=== PATIENT | female | born 1965 | race Caucasian/White ===

== ENCOUNTER → 2016-11-10 | Outpatient (CLI) | payer OTHER ==
[2016-11-10 15:50] LABS: BUN/CREATININE RATIO 6 (0-10)
== END ==
LOC: LAB 14:46
PROVIDERS: Family Medicine
DX: E87.6 Hypokalemia (principal)
CPT/HCPCS: 36415; 80048

== ENCOUNTER 2016-11-22 14:21 | Emergency (ER) | payer OTHER ==
[2016-11-22 15:58] LABS: BUN/CREATININE RATIO 6 (0-10)
[2016-11-22 16:25] LABS: HEMOGLOBIN 18.2 gm/dl (12.3-15.3); RED BLOOD COUNT 5.48 M/UL (4.00-5.10); WHITE BLOOD COUNT 5.9 K/UL (4.5-11.0)
== END 2016-11-22 18:20 | disposition home or self-care (01) ==
LOC: ER1 14:21
PROVIDERS: Specialist/Technologist Athletic Trainer
DX: R10.11 Right upper quadrant pain (principal); J40 Bronchitis, not specified as acute or chronic; F17.290 Nicotine dependence, other tobacco product, uncomplicated; E80.6 Other disorders of bilirubin metabolism; Z88.1 Allergy status to other antibiotic agents
CPT/HCPCS: 36415; 76705; 80053; 83690; 85025; 93005; 96374; 96375; 99284; C9113; J2405

== ENCOUNTER 2020-08-29 05:54 | Inpatient (IN) | payer OTHER ==
[~2020-08-29] VITALS: Ht 160 cm; Wt 38.6 kg
[~2020-08-29 05:54] MED LIST: ADVAIR HFA 230-28 GM INH; AUGMENTIN 875-1 EACH PO; ENSURE HIGH PR237 ML PO; NORCO 7.5-3251 EACH PO; OMNICEF 300 MG300 MG PO; OXYGEN; PREDNISONE 10 M10 MG PO; PROVENTIL HFA6.7 GM INH; SINGULAIR10 MG PO; SPIRIVA HANDIH18 MCG INH
[2020-08-29 06:44] LABS: HEMOGLOBIN 14.2 gm/dl (12.3-15.3); RED BLOOD COUNT 4.77 M/UL (4.00-5.10); WHITE BLOOD COUNT 16.5 K/UL (4.5-11.0)
[2020-08-29 07:06] LABS: BUN/CREATININE RATIO 24 (0-10)
[2020-08-29] MEDS ORDERED: VENTOLIN HFA 66.7 GM INH (12:08)
[2020-08-29] MEDS ORDERED: ZANAFLEX4 MG PO (12:08)
[2020-08-29] MEDS ORDERED: ULTRAM50 MG PO (12:08)
[2020-08-29] MEDS ORDERED: PREDNISONE 10 M10 MG PO (12:09)
[2020-08-29] MEDS ORDERED: NEURONTIN300 MG PO (12:11)
[2020-08-29] MEDS ORDERED: ROBAXIN-750750 MG PO (12:11)
[2020-08-29] MEDS ORDERED: OMEPRAZOLE20 MG PO (12:12)
[2020-08-29] MEDS ORDERED: RELAFEN750 MG PO (12:12)
[2020-08-29] MEDS ORDERED: ZOFRAN ODT 4 MG4 MG PO (12:13)
[2020-08-29] MEDS ORDERED: MUCINEX600 MG PO (12:13)
[2020-08-29] MEDS ORDERED: CLARITIN 10MG T10 MG PO (12:13)
[2020-08-29] MEDS ORDERED: DAILY VITE1 EACH PO (12:14)
[2020-08-29] MEDS ORDERED: MILK THISTLE500 MG PO (12:14)
[2020-08-30 04:09] LABS: HEMOGLOBIN 10.5 gm/dl (12.3-15.3); RED BLOOD COUNT 3.6 M/UL (4.00-5.10); WHITE BLOOD COUNT 8.4 K/UL (4.5-11.0)
[2020-08-30 04:58] LABS: BUN/CREATININE RATIO 15 (0-10)
--- NOTE | 2020-08-30 12:02 | NUR ---
SPOKE WITH AT THIS TIME ABOUT ADDING PAIN MEDICATION TO PATINETS MEDICATION REGIMEN DUE TO PATIENT AND FAMILY REQUEST.
[2020-08-31 04:42] LABS: HEMOGLOBIN 10.2 gm/dl (12.3-15.3); RED BLOOD COUNT 3.54 M/UL (4.00-5.10); WHITE BLOOD COUNT 7.8 K/UL (4.5-11.0)
[2020-08-31 04:58] LABS: BUN/CREATININE RATIO 17 (0-10)
[2020-09-01] MEDS ORDERED: OMNICEF 300 MG300 MG PO (11:30)
[2020-11-14] MEDS ORDERED: SPIRIVA18 MCG INH (11:52)
[2020-11-14] MEDS ORDERED: BACLOFEN10 MG PO (11:53)
[2020-11-14] MEDS ORDERED: LEXAPRO10 MG PO (11:54)
[2020-11-14] MEDS ORDERED: CRANBERRY PO (12:08)
[2020-11-14] MEDS ORDERED: IRON PO (12:09)
== END 2020-09-01 15:22 | disposition home or self-care (01) | DRG 871 ==
LOC: ER1 05:54 → MED SURG 4 09:28 → CDU 09:28 → MED SURG 4 15:30
PROVIDERS: Emergency Medicine; Physician Assistant Medical; ADMIT Internal Medicine
DX: A41.9 Sepsis, unspecified organism (principal); J18.9 Pneumonia, unspecified organism; G93.41 Metabolic encephalopathy; J44.0 Chronic obstructive pulmonary disease with (acute) lower respiratory infection; E44.0 Moderate protein-calorie malnutrition; Z20.822 Contact with and (suspected) exposure to COVID-19; Z68.1 Body mass index [BMI] 19.9 or less, adult; M87.852 Other osteonecrosis, left femur; K74.60 Unspecified cirrhosis of liver; K76.0 Fatty (change of) liver, not elsewhere classified; F10.10 Alcohol abuse, uncomplicated; M87.851 Other osteonecrosis, right femur; J96.10 Chronic respiratory failure, unspecified whether with hypoxia or hypercapnia; Z99.81 Dependence on supplemental oxygen; Z74.01 Bed confinement status; Z88.1 Allergy status to other antibiotic agents; Z79.899 Other long term (current) drug therapy
CPT/HCPCS: 0240U; 36600; 71045; 80048; 80053; 81001; 82140; 82550; 82553; 82803; 83605; 83690; 83735; 83874; 83880; 84484; 85025; 85027; 87040; 87086; 96365; 96375; 99285; J0456; J0696; J1650; J2930; J7030

== ENCOUNTER → 2020-09-22 | Outpatient (CLI) | payer OTHER ==
[~2020-09-22] MED LIST changes: +BACLOFEN10 MG PO; +CLARITIN 10MG T10 MG PO; +CRANBERRY PO; +DAILY VITE1 EACH PO; +ELIQUIS2.5 MG PO; +ENDOCET 7.5-321 EACH PO; +IRON PO; +LEXAPRO10 MG PO; +MILK THISTLE500 MG PO; +MUCINEX600 MG PO; +NEURONTIN300 MG PO; +OMEPRAZOLE20 MG PO; +RELAFEN750 MG PO; +ROBAXIN-750750 MG PO; +SPIRIVA18 MCG INH; +ULTRAM50 MG PO; +VENTOLIN HFA 66.7 GM INH; +ZANAFLEX4 MG PO; +ZOFRAN ODT 4 MG4 MG PO
[2020-09-22 10:52] LABS: HEMOGLOBIN 12.7 gm/dl (12.3-15.3); RED BLOOD COUNT 4.35 M/UL (4.00-5.10); WHITE BLOOD COUNT 6.9 K/UL (4.5-11.0)
[2020-09-22 11:21] LABS: BUN/CREATININE RATIO 20 (0-10)
== END ==
LOC: LAB 09:16
PROVIDERS: Family Medicine
DX: Z01.818 Encounter for other preprocedural examination (principal); Z79.899 Other long term (current) drug therapy; R91.8 Other nonspecific abnormal finding of lung field
CPT/HCPCS: 36415; 71046; 80053; 80061; 84439; 84443; 85025; 85610; 85730

== ENCOUNTER → 2020-11-14 | Outpatient (CLI) | payer OTHER ==
[2020-11-14 12:03] LABS: RED BLOOD COUNT 5.04 M/UL (4.00-5.10); WHITE BLOOD COUNT 11.8 K/UL (4.5-11.0)
[2020-11-14 12:18] LABS: BUN/CREATININE RATIO 15 (0-10)
== END ==
LOC: EDSTATUS 10:00 → OPSV2 10:00
PROVIDERS: Orthopaedic Surgery
DX: M87.052 Idiopathic aseptic necrosis of left femur (principal); M87.051 Idiopathic aseptic necrosis of right femur; J43.2 Centrilobular emphysema; R00.0 Tachycardia, unspecified
CPT/HCPCS: 36415; 71046; 80048; 85025; 87081; 93005

== ENCOUNTER → 2020-11-24 | Outpatient (CLI) | payer OTHER ==
[2020-11-24 14:32] LABS: BUN/CREATININE RATIO 19 (0-10)
== END ==
LOC: LAB 13:27
PROVIDERS: Orthopaedic Surgery
DX: Z01.812 Encounter for preprocedural laboratory examination (principal)
CPT/HCPCS: 36415; 80048; 86850; 86920

== ENCOUNTER 2020-11-25 06:47 | Inpatient (IN) | payer OTHER ==
[~2020-11-25] VITALS: Ht 167.6 cm; Wt 47.6 kg
[~2020-11-25 06:47] MED LIST changes: -ELIQUIS2.5 MG PO; -ENDOCET 7.5-321 EACH PO
[2020-11-25] MEDS ORDERED: ELIQUIS2.5 MG PO (08:32)
[2020-11-25] MEDS ORDERED: ENDOCET 7.5-321 EACH PO (08:32)
[2020-11-25 12:16] LABS: HEMOGLOBIN 11.9 gm/dl (12.3-15.3); RED BLOOD COUNT 4.15 M/UL (4.00-5.10); WHITE BLOOD COUNT 23.6 K/UL (4.5-11.0)
[2020-11-25 14:53] LABS: HEMOGLOBIN 10.3 gm/dl (12.3-15.3); WHITE BLOOD COUNT 28.9 K/UL (4.5-11.0)
[2020-11-25 14:58] LABS: RED BLOOD COUNT 3.53 M/UL (4.00-5.10)
[2020-11-25 15:32] LABS: BUN/CREATININE RATIO 19 (0-10)
[2020-11-26 05:15] LABS: HEMOGLOBIN 7.2 gm/dl (12.3-15.3)
[2020-11-26 05:16] LABS: RED BLOOD COUNT 2.44 M/UL (4.00-5.10); WHITE BLOOD COUNT 11.1 K/UL (4.5-11.0)
[2020-11-26 05:39] LABS: BUN/CREATININE RATIO 28 (0-10)
[2020-11-26 15:51] LABS: HEMOGLOBIN 8.1 gm/dl (12.3-15.3)
[2020-11-26 22:27] LABS: HEMOGLOBIN 7.9 gm/dl (12.3-15.3)
[2020-11-27 07:00] LABS: HEMOGLOBIN 9.3 gm/dl (12.3-15.3); WHITE BLOOD COUNT 8.8 K/UL (4.5-11.0)
[2020-11-27 07:02] LABS: RED BLOOD COUNT 3.23 M/UL (4.00-5.10)
[2020-11-27 07:37] LABS: BUN/CREATININE RATIO 27 (0-10)
[2020-11-28 03:48] LABS: HEMOGLOBIN 8.5 gm/dl (12.3-15.3); RED BLOOD COUNT 2.99 M/UL (4.00-5.10); WHITE BLOOD COUNT 10.9 K/UL (4.5-11.0)
[2020-11-28 04:08] LABS: BUN/CREATININE RATIO 22 (0-10)
[2020-11-29 04:04] LABS: HEMOGLOBIN 8.5 gm/dl (12.3-15.3); RED BLOOD COUNT 2.88 M/UL (4.00-5.10)
[2020-11-29 04:23] LABS: BUN/CREATININE RATIO 17 (0-10)
[2020-11-30 04:34] LABS: HEMOGLOBIN 8.1 gm/dl (12.3-15.3); RED BLOOD COUNT 2.8 M/UL (4.00-5.10); WHITE BLOOD COUNT 11.9 K/UL (4.5-11.0)
[2020-11-30 05:19] LABS: BUN/CREATININE RATIO 17 (0-10)
[2020-12-01 06:55] LABS: HEMOGLOBIN 7.7 gm/dl (12.3-15.3); RED BLOOD COUNT 2.7 M/UL (4.00-5.10)
[2020-12-01 07:15] LABS: BUN/CREATININE RATIO 20 (0-10)
[2020-12-02 06:28] LABS: HEMOGLOBIN 7.6 gm/dl (12.3-15.3); RED BLOOD COUNT 2.68 M/UL (4.00-5.10); WHITE BLOOD COUNT 7.9 K/UL (4.5-11.0)
[2020-12-02 06:55] LABS: BUN/CREATININE RATIO 19 (0-10)
[2020-12-03 03:31] LABS: HEMOGLOBIN 7.8 gm/dl (12.3-15.3)
[2020-12-04 03:23] LABS: RED BLOOD COUNT 2.83 M/UL (4.00-5.10)
[2020-12-05 20:01] LABS: HEMOGLOBIN 7.7 gm/dl (12.3-15.3)
[2020-12-07 06:24] LABS: BUN/CREATININE RATIO 14 (0-10)
[2020-12-08 04:43] LABS: BUN/CREATININE RATIO 14 (0-10)
[2020-12-08 05:01] LABS: HEMOGLOBIN 7.6 gm/dl (12.3-15.3); RED BLOOD COUNT 2.68 M/UL (4.00-5.10); WHITE BLOOD COUNT 7.3 K/UL (4.5-11.0)
[2020-12-09 08:59] LABS: HEMOGLOBIN 8.5 gm/dl (12.3-15.3); RED BLOOD COUNT 3.12 M/UL (4.00-5.10); WHITE BLOOD COUNT 8.3 K/UL (4.5-11.0)
[2020-12-09 09:20] LABS: BUN/CREATININE RATIO 10 (0-10)
== END 2020-12-10 12:15 | DRG 461 ==
LOC: ZOBSOF 06:47 → CCU 16:34 → M/S 11-28 16:47
PROVIDERS: Family Medicine; Internal Medicine; Nurse Practitioner Family; ADMIT Orthopaedic Surgery
PROC: 0SR901A Replacement of Right Hip Joint with Metal Synthetic Substitute, Uncemented, Open Approach (ICD-10-PCS; 2020-11-25)
PROC: 0SRB01A Replacement of Left Hip Joint with Metal Synthetic Substitute, Uncemented, Open Approach (ICD-10-PCS; principal; 2020-11-25 11:45)
PROC: 30233N1 Transfusion of Nonautologous Red Blood Cells into Peripheral Vein, Percutaneous Approach (ICD-10-PCS; 2020-11-26)
DX: M16.0 Bilateral primary osteoarthritis of hip (principal); E43 Unspecified severe protein-calorie malnutrition; M87.852 Other osteonecrosis, left femur; M87.851 Other osteonecrosis, right femur; Z20.822 Contact with and (suspected) exposure to COVID-19; D62 Acute posthemorrhagic anemia; Z68.1 Body mass index [BMI] 19.9 or less, adult; E87.2 Acidosis; J96.11 Chronic respiratory failure with hypoxia; R00.0 Tachycardia, unspecified; M47.892 Other spondylosis, cervical region; J44.9 Chronic obstructive pulmonary disease, unspecified; K74.60 Unspecified cirrhosis of liver; F17.210 Nicotine dependence, cigarettes, uncomplicated; F39 Unspecified mood [affective] disorder; E86.1 Hypovolemia; K75.81 Nonalcoholic steatohepatitis (NASH); E88.09 Other disorders of plasma-protein metabolism, not elsewhere classified; I95.9 Hypotension, unspecified; F10.10 Alcohol abuse, uncomplicated; Z56.0 Unemployment, unspecified; Z99.3 Dependence on wheelchair; Z74.01 Bed confinement status; Z88.1 Allergy status to other antibiotic agents; Z87.01 Personal history of pneumonia (recurrent); Z79.01 Long term (current) use of anticoagulants
CPT/HCPCS: 36415; 36430; 71045; 72170; 73522; 76000; 80048; 80053; 81001; 83605; 83735; 84703; 85014; 85018; 85025; 85027; 86140; 86850; 86900; 86901; 86920; 87040; 93005; 94640; 94664; 94760; 97110; 97110-GP-CQ; 97163; 97166; 97530; 97530-GP-CQ; C1713; C1776; J0171; J0690; J1100; J1644; J1885; J2001; J2060; J2250; J2270; J2370; J2405; J2704; J2710; J2795; J3010; J3370; J7030; J7040; J7050; J7120; P9016; P9045

== ENCOUNTER 2021-10-01 14:52 | Inpatient (IN) | payer OTHER ==
[~2021-10-01] VITALS: Ht 167.6 cm; Wt 49.9 kg
[~2021-10-01 14:52] MED LIST changes: +ELIQUIS2.5 MG PO; +ENDOCET 7.5-321 EACH PO
[2021-10-01 15:22] LABS: HEMOGLOBIN 14.9 gm/dl (12.3-15.3); RED BLOOD COUNT 4.87 M/UL (4.00-5.10)
[2021-10-01 15:51] LABS: BUN/CREATININE RATIO 23 (0-10)
[2021-10-02 04:49] LABS: BUN/CREATININE RATIO 21 (0-10)
[2021-10-03 07:04] LABS: BUN/CREATININE RATIO 30 (0-10)
[2021-10-04] MEDS ORDERED: CEFUROXIME500 MG PO (10:36)
[2021-10-04] MEDS ORDERED: MEDROL DOSEPAK 24 MG PO (10:36)
[2021-10-04] MEDS ORDERED: IPRAT-ALBUT 0.5-3 ML NEB (10:36)
[2021-10-04] MEDS ORDERED: AZITHROMYCIN500 MG PO (10:36)
[2021-10-04] MEDS ORDERED: LOPRESSOR 25 MG25 MG PO (10:36)
[2021-10-04] MEDS ORDERED: PROTONIX40 MG PO (10:37)
== END 2021-10-04 12:03 | disposition home or self-care (01) | DRG 194 ==
LOC: ER1 14:52 → MED SURG 4 17:48 → CDU 17:48 → MED SURG 4 20:05
PROVIDERS: Emergency Medicine; ADMIT Internal Medicine Infectious Disease
PROC: 3E03329 Introduction of Other Anti-infective into Peripheral Vein, Percutaneous Approach (ICD-10-PCS; principal; 2021-10-01)
PROC: B24BZZZ Ultrasonography of Heart with Aorta (ICD-10-PCS; 2021-10-02)
DX: J18.9 Pneumonia, unspecified organism (principal); J96.11 Chronic respiratory failure with hypoxia; J44.0 Chronic obstructive pulmonary disease with (acute) lower respiratory infection; J44.1 Chronic obstructive pulmonary disease with (acute) exacerbation; E87.1 Hypo-osmolality and hyponatremia; R64 Cachexia; Z68.1 Body mass index [BMI] 19.9 or less, adult; Z20.822 Contact with and (suspected) exposure to COVID-19; K70.9 Alcoholic liver disease, unspecified; F10.10 Alcohol abuse, uncomplicated; Z96.643 Presence of artificial hip joint, bilateral; F17.210 Nicotine dependence, cigarettes, uncomplicated; Z79.899 Other long term (current) drug therapy
CPT/HCPCS: ECHO; 0241U; 36415; 71045; 71046; 80048; 80053; 82550; 82553; 83605; 83735; 83880; 84100; 84443; 84484; 85025; 85379; 85610; 85730; 86140; 87040; 93005; 93306; 94640; 94664; 94760; 96374; 96375; 99285; G0480; J0456; J0696; J2060; J2920; J2930; J7030